=== PATIENT | female | born 1980 | race African-American/Black ===

== ENCOUNTER 2017-01-16 12:38 | Emergency (ER) | payer MEDICAID ==
[~2017-01-16 12:38] MED LIST: AMLO5TAB4; SERT50TA
[2017-01-16 14:05] VITALS: BP 135/65
== END 2017-01-16 14:09 | disposition home or self-care (01) ==
LOC: ER 12:38
DX: G50.0 Trigeminal neuralgia (principal)
CPT/HCPCS: 99283

== ENCOUNTER 2020-02-06 15:12 | Inpatient (IN) | payer MEDICAID ==
[~2020-02-06] VITALS: Ht 162.6 cm; Wt 124.3 kg
[2020-02-06] MEDS ORDERED: atenolol (15:15)
[2020-02-06] MEDS ORDERED: ASPIRIN 81MG EC TABLET PO ONE ×2 (16:00→20:00)
[2020-02-06] MEDS ORDERED: LORAZEPAM 2MG/ML CPJ IV ONE (16:00)
[2020-02-06 16:02] LABS: BASOPHILS % 0.4 % (0.0-2.0); EOSINOPHILS % 0.2 % (0.0-5.0); HEMATOCRIT. 37.7 % (36.0-48.0); HEMOGLOBIN. 12.7 g/dL (12.0-16.0); LYMPHOCYTES % 27.2 % (20.0-50.0); MEAN CORPUSCULAR HEMOGLOBIN 30.8 pg (28.0-32.0); MEAN CORPUSCULAR VOLUME 91.3 fL (81.0-99.0); MEAN PLATELET VOLUME 7.4 fl (7.4-10.4); MONOCYTES % 11.6 % (2.0-8.0); NEUTROPHILS % 60.6 % (40.0-76.0); PLATELET 247 x1000/uL (130-400); RED BLOOD CELL COUNT 4.13 mill/uL (4.2-5.4); RED CELL DISTRIBUTION WIDTH 14.1 % (11.6-14.6)
[2020-02-06 16:09] LABS: CHLORIDE 101 mEq/L (98-107)
[2020-02-06 16:10] LABS: PROTHROMBIN TIME 10.9 sec (9.6-11.0)
[2020-02-06 16:24] LABS: HCG SCREEN NEGATIVE
[2020-02-06] MEDS ORDERED: SODIUM CHLORIDE 0.9% 1,000 ML IV ONE (16:30)
[2020-02-06 16:38] LABS: CLARITY URINE CLEAR (CLEAR); COLOR URINE YELLOW (YELLOW); KETONES URINE 1+ (NEGATIVE); LEUKOCYTE ESTERASE URINE NEGATIVE (NEGATIVE); NITRITE URINE NEGATIVE (NEGATIVE); OCCULT BLOOD URINE NEGATIVE (NEGATIVE); PROTEIN URINE NEGATIVE (NEGATIVE); SPECIFIC GRAVITY URINE 1.002 (1.005-1.030); UROBILINOGEN URINE 0.2 E.U./dL (0.2-1.0)
[2020-02-06 16:58] LABS: *AMPHETAMINES SCREEN URINE NEGATIVE (NEGATIVE); *BARBITURATES SCREEN URINE NEGATIVE (NEGATIVE); *BENZODIAZEPINES SCREEN URINE NEGATIVE (NEGATIVE); *COCAINE SCREEN URINE NEGATIVE (NEGATIVE); METHADONE URINE SCREEN NEGATIVE (NEGATIVE); OPIATES URINE SCREEN NEGATIVE (NEGATIVE)
[2020-02-06 16:59] LABS: PHENCYCLIDINE URINE SCREEN NEGATIVE (NEGATIVE)
[2020-02-06 17:05] LABS: CANNABINOID URINE SCREEN PRESUMTIVE POSITIVE (NEGATIVE)
[2020-02-06] MEDS ORDERED: CEFTRIAXONE 1 G PREMIX 50 ML IV ONE (20:00)
[2020-02-06] MEDS ORDERED: KCL 20MEQ/100ML PREMIX 100 ML IV ONE (20:00)
[2020-02-06] MEDS ORDERED: MAGNESIUM 1 G PREMIX 100 ML IV ONE (20:00)
[2020-02-06] MEDS ORDERED: ATORVASTATIN CALCIUM 40MG TABLET PO SCH (21:00)
[2020-02-06] MEDS ORDERED: CYM20 MT (22:54)
[2020-02-06 22:56] VITALS: BP 146/92
[2020-02-07] VITALS: BP 145/77
[2020-02-07] MEDS ORDERED: CLONIDINE 0.2MG TABLET PO PRN (00:15)
[2020-02-07] MEDS ORDERED: ZOLPIDEM TARTRATE 5MG TABLET PO PRN (00:15)
[2020-02-07] MEDS ORDERED: HYDROCODONE/ACETAMINOPHEN 5/325MG TABLET PO PRN (00:15)
[2020-02-07] MEDS ORDERED: ACETAMINOPHEN 325MG TABLET PO PRN (00:15)
[2020-02-07 04:00] VITALS: BP 108/78
[2020-02-07 07:41] LABS: HEMOGLOBIN 11.3 g/dL (12.0-16.0); MEAN CORPUSCULAR HEMOGLOBIN 30.9 pg (28.0-32.0); MEAN CORPUSCULAR VOLUME 93.2 fL (81.0-99.0); PLATELET 188 x1000/uL (130-400); RED BLOOD CELL COUNT 3.65 mill/uL (4.2-5.4); RED CELL DISTRIBUTION WIDTH 14.2 % (11.6-14.6)
[2020-02-07 08:00] VITALS: BP 128/75
[2020-02-07 08:58] LABS: CHLORIDE 106 mEq/L (98-107)
[2020-02-07] MEDS ORDERED: ENOXAPARIN 40MG/0.4ML SYR SUBCUT SCH (09:00)
[2020-02-07] MEDS: ASPIRIN 81MG TABLET PO SCH (09:06)
[2020-02-07] MEDS: AZITHROMYCIN 500 MG TABLET PO SCH (09:07)
[2020-02-07] MEDS: ATENOLOL 50 MG TABLET PO SCH (09:07)
[2020-02-07] MEDS: ENOXAPARIN 30MG/0.3ML SYR SUBCUT SCH ×2 (09:07→22:02)
[2020-02-07 09:16] LABS: CREATINE KINASE 184 IU/L (26-192)
[2020-02-07 09:22] LABS: CREATINE KINASE MB FRACTION 1.7 ng/mL (0.5-3.6)
[2020-02-07 12:00] VITALS: BP 131/96
[2020-02-07 16:00] VITALS: BP 131/79
[2020-02-07 17:04] LABS: CREATINE KINASE 148 IU/L (26-192); CREATINE KINASE MB FRACTION 1.3 ng/mL (0.5-3.6)
[2020-02-07] MEDS: MULTIVITAMINS,THER W-MINERALS TABLET PO SCH (19:19)
[2020-02-07] MEDS: THIAMINE HCL 100MG TABLET PO SCH (19:19)
[2020-02-07] MEDS: FOLIC ACID 1MG TABLET PO SCH (19:21)
[2020-02-07] MEDS: MAGNESIUM GLUCONATE 500MG TABLET PO SCH (19:21)
[2020-02-07 20:00] VITALS: BP 134/78
[2020-02-08] VITALS: BP 134/76
[2020-02-08 04:00] VITALS: BP 134/78
[2020-02-08 06:11] LABS: BASOPHILS % 0.3 % (0.0-2.0); EOSINOPHILS % 2.2 % (0.0-5.0); HEMATOCRIT. 34.1 % (36.0-48.0); HEMOGLOBIN. 11.3 g/dL (12.0-16.0); LYMPHOCYTES % 24.1 % (20.0-50.0); MEAN CORPUSCULAR HEMOGLOBIN 31.3 pg (28.0-32.0); MEAN CORPUSCULAR VOLUME 94.1 fL (81.0-99.0); MEAN PLATELET VOLUME 7.4 fl (7.4-10.4); MONOCYTES % 9.7 % (2.0-8.0); NEUTROPHILS % 63.7 % (40.0-76.0); PLATELET 153 x1000/uL (130-400); RED BLOOD CELL COUNT 3.62 mill/uL (4.2-5.4); RED CELL DISTRIBUTION WIDTH 14.2 % (11.6-14.6)
[2020-02-08 06:22] LABS: CHLORIDE 107 mEq/L (98-107)
[2020-02-08] MEDS ORDERED: REGADENOSON 0.4 MG/5 ML IV ONE (07:40)
[2020-02-08 08:00] VITALS: BP 143/86
[2020-02-08] MEDS: FOLIC ACID 1MG TABLET PO SCH (09:00)
[2020-02-08] MEDS: THIAMINE HCL 100MG TABLET PO SCH (09:00)
[2020-02-08] MEDS: ASPIRIN 81MG TABLET PO SCH (09:00)
[2020-02-08] MEDS: AZITHROMYCIN 500 MG TABLET PO SCH (09:00)
[2020-02-08] MEDS ORDERED: REGADENOSON 0.4 MG/5 ML IV SCH (09:00)
[2020-02-08] MEDS: ENOXAPARIN 30MG/0.3ML SYR SUBCUT SCH (09:00)
[2020-02-08] MEDS: MAGNESIUM GLUCONATE 500MG TABLET PO SCH (09:00)
[2020-02-08] MEDS: MULTIVITAMINS,THER W-MINERALS TABLET PO SCH (09:00)
[2020-02-08] MEDS: ATENOLOL 50 MG TABLET PO SCH (09:00)
[2020-02-08 12:00] VITALS: BP 160/101
[2020-02-08 14:17] VITALS: BP 143/86
== END 2020-02-08 15:00 | disposition home or self-care (01) | DRG 198 ==
LOC: ER 15:36 → 5WST 19:21 → ENRESERV 21:03
PROVIDERS: ADMIT Internal Medicine; ATTEND Internal Medicine
DX: I24.8 Other forms of acute ischemic heart disease (principal); E87.2 Acidosis; F10.10 Alcohol abuse, uncomplicated; E66.9 Obesity, unspecified; F41.9 Anxiety disorder, unspecified; F12.90 Cannabis use, unspecified, uncomplicated; E11.9 Type 2 diabetes mellitus without complications; I10 Essential (primary) hypertension; E87.6 Hypokalemia; R00.2 Palpitations; E78.00 Pure hypercholesterolemia, unspecified; E78.5 Hyperlipidemia, unspecified; F17.200 Nicotine dependence, unspecified, uncomplicated; Z68.42 Body mass index [BMI] 45.0-49.9, adult; Z79.899 Other long term (current) drug therapy
CPT/HCPCS: 36415; 71045; 78452; 80048; 80053; 80061; 80305; 81003; 82550; 82553; 83036; 83605; 83735; 83880; 84484; 84703; 85025; 85027; 93005; 93017; 96374; 99285; A9500; J0696; J1650; J2060; J2785; J3475; J3480; J7030